=== PATIENT | female | born 1980 | race Caucasian/White ===

== ENCOUNTER 2019-11-03 10:33 | Emergency (ER) | payer OTHER ==
[2019-11-03 10:52] VITALS: BP 123/70; PULSE 80; RESP 18; TEMP 98.3
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
== END 2019-11-03 11:29 | disposition home or self-care (01) ==
LOC: EC 10:33
DX: L03.011 Cellulitis of right finger (principal); F17.200 Nicotine dependence, unspecified, uncomplicated; Z79.899 Other long term (current) drug therapy
CPT/HCPCS: 99283

== ENCOUNTER 2019-12-02 09:58 | Emergency (ER) | payer OTHER ==
[2019-12-02 10:17] VITALS: RESP 18
--- NOTE | 2019-12-02 11:13 | XR ---
EXAMINATION TYPE: XR ribs LT w pa chest xray DATE OF EXAM: 12/02/2019 CLINICAL HISTORY: Chest pain TECHNIQUE: Single frontal view of the chest is obtained. 2 views of the left ribs were obtained. COMPARISON: 10/02/2015 FINDINGS: There is no focal air space opacity, pleural effusion, or pneumothorax seen. The cardiac silhouette size is within normal limits. Minimally displaced left lateral rib 8 fracture is seen. Rem aining left ribs appear intact. No healed callused rib fracture deformity. IMPRESSION: Acute minimally displaced left lateral rib 8 fracture.
--- NOTE | 2019-12-02 11:22 | XR ---
EXAMINATION TYPE: XR nasal bone DATE OF EXAM: 12/02/2019 COMPARISON: NONE HISTORY: Nasal bone pain TECHNIQUE: 3 views of the nasal bones were obtained FINDINGS: No acute displaced nasal bone fracture is seen. Nasal septum is grossly midline. No radiogr aphic foreign body or focal soft tissue swelling. IMPRESSION: No acute displaced nasal bone fracture
[2019-12-02] MEDS ORDERED: ACET/COD 300 MG/30 MG STARTER PACK 6 TAB BTL PO STA (11:31)
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
[2019-12-02 11:41] VITALS: BP 114/62; PULSE 70; TEMP 98
== END 2019-12-02 11:47 | disposition home or self-care (01) ==
LOC: EC 09:58
DX: S22.32XA Fracture of one rib, left side, initial encounter for closed fracture (principal); S00.33XA Contusion of nose, initial encounter; L03.011 Cellulitis of right finger; F31.9 Bipolar disorder, unspecified; F11.10 Opioid abuse, uncomplicated; F17.200 Nicotine dependence, unspecified, uncomplicated; Z86.14 Personal history of Methicillin resistant Staphylococcus aureus infection; Y04.8XXA Assault by other bodily force, initial encounter
CPT/HCPCS: 70160; 99284

== ENCOUNTER 2021-02-14 09:44 | Emergency (ER) | payer OTHER ==
--- NOTE | 2021-02-14 10:16 | ED ---
General Adult HPI - General Chief complaint: Upper Respiratory Infection Stated complaint: Congestion Time Seen by Provider: 02/14/21 10:04 Source: patient, RN notes reviewed Mode of arrival: ambulatory Limitations: no limitations - History of Present Illness Initial comments: Patient is a 41-year-old female that presents to the emergency department with a 2 day history of cough congestion and body aches. She notes that she recently turned on her air conditioning unit and lots of water while she sleeping. She notes that she woke up feeling congested the first day turned it off in the day felt better. She notes that she tried again on the next night woke up feeling even worse. She notes that this similar thing happen last year when she turned her air conditioning on. She notes that it almost gives her a sinus infection and usually has take antibiotics. She denies recently being tested for Covid. She was in no apparent distress or pain while sitting up in bed during the exam interview. She denied any chest pain headache nausea vomiting diarrhea constipation fever fatigue chills. - Related Data Home Medications Medication Instructions Recorded Confirmed PARoxetine HCL [Paxil] 40 mg PO DAILY 07/27/16 07/27/16 QUEtiapine [SEROquel] 400 mg PO HS 07/27/16 07/27/16 atenoloL [Tenormin] 25 mg PO BID 07/27/16 07/27/16 buPROPion HCL [Wellbutrin SR] 150 mg PO BID 07/27/16 07/27/16 chlordiazePOXIDE HCl [Librium] 10 mg PO BID 07/27/16 07/27/16 traZODone HCL 150 mg PO HS 07/27/16 07/27/16 Previous Rx's Medication Instructions Recorded Cephalexin [Keflex] 500 mg PO Q6HR 7 Days #28 cap 11/03/19 Sulfamethox-Tmp 800-160Mg [Bactrim 1 each PO Q12HR 7 Days #14 tab 11/03/19 Ds] Clindamycin HCl 300 mg PO Q6HR #40 cap 12/02/19 Ibuprofen [Motrin] 600 mg PO Q8HR PRN #20 tab 12/02/19 Amoxicillin 500 mg PO Q8H #15 capsule 02/14/21 Allergies Allergy/AdvReac Type Severity Reaction Status Date / Time No Known Allergies Allergy Verified 02/14/21 10:02 Review of Systems ROS Statement: Those systems with pertinent positive or pertinent negative responses have been documented in the HPI. ROS Other: All systems not noted in ROS Statement are negative. Past Medical History Past Medical History: Asthma, GERD/Reflux, Pneumonia Additional Past Medical History / Comment(s): colitis, chrons,ibs. opiate abuse History of Any Multi-Drug Resistant Organisms: None Reported, MRSA Date of last positivie culture/infection: 09/25/17 MDRO Source:: back Past Surgical History: Appendectomy, Tubal Ligation Past Anesthesia/Blood Transfusion Reactions: No Reported Reaction Past Psychological History: Bipolar Smoking Status: Current every day smoker Past Alcohol Use History: None Reported Past Drug Use History: None Reported - Past Family History Father Family Medical History: Hyperlipidemia, Hypertension, Myocardial Infarction ([place]) Mother Family Medical History: Hyperlipidemia, Hypertension General Exam Limitations: no limitations General appearance: alert, in no apparent distress Head exam: Present: atraumatic, normocephalic, normal inspection Eye exam: Present: normal appearance, PERRL, EOMI. Absent: scleral icterus, conjunctival injection, periorbital swelling Neck exam: Present: normal inspection. Absent: tenderness, meningismus, lymphadenopathy Respiratory exam: Present: normal lung sounds bilaterally. Absent: respiratory distress, wheezes, rales, rhonchi, stridor Cardiovascular Exam: Present: regular rate, normal rhythm, normal heart sounds. Absent: systolic murmur, diastolic murmur, rubs, gallop, clicks GI/Abdominal exam: Present: soft, normal bowel sounds. Absent: distended, tenderness, guarding, rebound, rigid Extremities exam: Present: normal inspection, full ROM, normal capillary refill. Absent: tenderness, pedal edema, joint swelling, calf tenderness Neurological exam: Present: alert, oriented X3, CN II-XII intact Psychiatric exam: Present: normal affect, normal mood Skin exam: Present: warm, dry, intact, normal color. Absent: rash Course Vital Signs 02/14/21 10:00 Temperature 98.3 F Pulse Rate 100 Respiratory 19 Rate Blood Pressure 121/87 O2 Sat by Pulse 98 Oximetry Medical Decision Making - Medical Decision Making 41-year-old female complaining of cough congestion and body aches. Covid test, flu test, basic labs, chest x-ray ordered. Labs unremarkable. Covid and flu test negative. X-ray negative for any acute cardiopulmonary problems. Case discussed with Dr. Starks, patient can discharge home with follow-up to primary care. - Lab Data Result diagrams: 02/14/21 10:26 02/14/21 10:26 Lab Results 02/14/21 02/14/21 02/14/21 Range/Units 10:26 10:26 10:26 WBC 10.3 (3.8-10.6) k/uL RBC 4.89 (3.80-5.40) m/uL Hgb 15.1 (11.4-16.0) gm/dL Hct 44.4 (34.0-46.0) % MCV 90.8 (80.0-100.0) fL MCH 30.9 (25.0-35.0) pg MCHC 34.0 (31.0-37.0) g/dL RDW 12.9 (11.5-15.5) % Plt Count 232 (150-450) k/uL MPV 6.7 Neutrophils % 76 % Lymphocytes % 17 % Monocytes % 4 % Eosinophils % 2 % Basophils % 0 % Neutrophils # 7.9 H (1.3-7.7) k/uL Lymphocytes # 1.8 (1.0-4.8) k/uL Monocytes # 0.4 (0-1.0) k/uL Eosinophils # 0.2 (0-0.7) k/uL Basophils # 0.0 (0-0.2) k/uL Sodium 139 (137-145) mmol/L Potassium 4.3 (3.5-5.1) mmol/L Chloride 106 (98-107) mmol/L Carbon Dioxide 24 (22-30) mmol/L Anion Gap 9 mmol/L BUN 13 (7-17) mg/dL Creatinine 0.66 (0.52-1.04) mg/dL Est GFR (CKD-EPI)AfAm >90 (>60 ml/min/1.73 sqM) Est GFR (CKD-EPI)NonAf >90 (>60 ml/min/1.73 sqM) Glucose 110 H (74-99) mg/dL Calcium 9.4 (8.4-10.2) mg/dL Coronavirus (PCR) (Not Detectd) Influenza Type A RNA Not Detected (Not Detectd) Influenza Type B (PCR) Not Detected (Not Detectd) 02/14/21 Range/Units 10:26 WBC (3.8-10.6) k/uL RBC (3.80-5.40) m/uL Hgb (11.4-16.0) gm/dL Hct (34.0-46.0) % MCV (80.0-100.0) fL MCH (25.0-35.0) pg MCHC (31.0-37.0) g/dL RDW (11.5-15.5) % Plt Count (150-450) k/uL MPV Neutrophils % % Lymphocytes % % Monocytes % % Eosinophils % % Basophils % % Neutrophils # (1.3-7.7) k/uL Lymphocytes # (1.0-4.8) k/uL Monocytes # (0-1.0) k/uL Eosinophils # (0-0.7) k/uL Basophils # (0-0.2) k/uL Sodium (137-145) mmol/L Potassium (3.5-5.1) mmol/L Chloride (98-107) mmol/L Carbon Dioxide (22-30) mmol/L Anion Gap mmol/L BUN (7-17) mg/dL Creatinine (0.52-1.04) mg/dL Est GFR (CKD-EPI)AfAm (>60 ml/min/1.73 sqM) Est GFR (CKD-EPI)NonAf (>60 ml/min/1.73 sqM) Glucose (74-99) mg/dL Calcium (8.4-10.2) mg/dL Coronavirus (PCR) Not Detected (Not Detectd) Influenza Type A RNA (Not Detectd) Influenza Type B (PCR) (Not Detectd) - Radiology Data Radiology results: report reviewed, image reviewed Chest x-ray: No acute cardiopulmonary process. Disposition Clinical Impression: Sinusitis Disposition: HOME SELF-CARE Condition: Stable Instructions (If sedation given, give patient instructions): Upper Respiratory Infection (ED) Additional Instructions: Please return to the Emergency Department if symptoms worsen or any other concerns. Follow-up with primary care in 3-5 days. Take antibiotics as prescribed until complete. Avoid using air-conditioner at night with a directly blowing and face as it can cause sinus congestion irritation. Is patient prescribed a controlled substance at d/c from ED?: No Referrals: [facility] [Primary Care Provider] - 1-2 days Time of Disposition: 12:11
--- NOTE | 2021-02-14 10:24 | XR ---
EXAMINATION TYPE: XR chest 2V DATE OF EXAM: 02/14/2021 COMPARISON: Chest x-ray December 02, 2019 HISTORY: Cough and shortness of breath. TECHNIQUE: Frontal and lateral views of the chest are obtained. FINDINGS: There is no new suspicious focal air space opacity, pleural effusion, or pneumothorax seen . The cardiac silhouette size is stable and within normal limits. The osseous structures are intac t. IMPRESSION: No acute cardiopulmonary process.
[2021-02-14 10:40] LABS: Basophils % (A) 0 %; Eosinophils # (A) 0.2 k/uL (0-0.7); Eosinophils % (A) 2 %; HCT 44.4 % (34.0-46.0); HGB 15.1 gm/dL (11.4-16.0); Lymphocytes # (A) 1.8 k/uL (1.0-4.8); Lymphocytes % (A) 17 %; MCH 30.9 pg (25.0-35.0); MCV 90.8 fL (80.0-100.0); Mean Platelet Volume 6.7; Monocytes # (A) 0.4 k/uL (0-1.0); Monocytes % (A) 4 %; Neutrophils # (A) 7.9 k/uL (1.3-7.7); Neutrophils % (A) 76 %; Platelet Count 232 k/uL (150-450); RBC 4.89 m/uL (3.80-5.40); RDW 12.9 % (11.5-15.5); WBC 10.3 k/uL (3.8-10.6)
[2021-02-14 10:52] LABS: African American GFR (CKD) >90 (>60 ml/min/1.73 sqM); Anion Gap 9 mmol/L; Blood Urea Nitrogen 13 mg/dL (7-17); Calcium 9.4 mg/dL (8.4-10.2); Carbon Dioxide 24 mmol/L (22-30); Chloride 106 mmol/L (98-107); Glucose 110 mg/dL (74-99); Non-African American GFR(CKD) >90 (>60 ml/min/1.73 sqM); Potassium 4.3 mmol/L (3.5-5.1); Sodium 139 mmol/L (137-145)
[2021-02-14 12:28] VITALS: BP 124/74; PULSE 78; RESP 16; TEMP 98.5
== END 2021-02-14 12:27 | disposition home or self-care (01) ==
LOC: EC 09:44
DX: J32.9 Chronic sinusitis, unspecified (principal); J45.909 Unspecified asthma, uncomplicated; F17.200 Nicotine dependence, unspecified, uncomplicated; Z20.822 Contact with and (suspected) exposure to COVID-19
CPT/HCPCS: 36415; 71046; 80048; 85025; 87502; 87635; 99283

== ENCOUNTER → 2021-07-19 | Outpatient (CLI) | payer OTHER | END | disposition home or self-care (01) | LOC: LABWHC1 10:40 | PROVIDERS: ATTEND Internal Medicine | DX: Z20.822 Contact with and (suspected) exposure to COVID-19 (principal) | CPT/HCPCS: U0003; C9803; U0005 ==

== ENCOUNTER 2021-10-05 23:10 | Emergency (ER) | payer OTHER ==
[2021-10-05 23:17] VITALS: RESP 16; TEMP 97.7
[2021-10-06 01:45] VITALS: BP 133/89; PULSE 65
--- NOTE | 2021-10-06 01:46 | ED ---
Recheck HPI - General Chief Complaint: Shortness of Breath Stated Complaint: SOB Time Seen by Provider: 10/06/21 01:25 Source: patient, RN notes reviewed, old records reviewed Mode of arrival: ambulatory - History of Present Illness Initial Comments: This is a 41-year-old female DF for evaluation, patient complains of headache history of asthma cough and congestion also complains of bodyaches and pains for 2 days. No real known significant sick contacts. No fevers MD Complaint: other (patient is concern for coronavirus) -: days(s) Returns Today for: request for prescription (Patient wants to be tested for coronavirus) Symptoms Since Prior Visit: no new symptoms Associated Symptoms: none Treatments Prior to Arrival: other (none) - Related Data Home Medications Medication Instructions Recorded Confirmed PARoxetine HCL [Paxil] 40 mg PO DAILY 07/27/16 07/27/16 QUEtiapine [SEROquel] 400 mg PO HS 07/27/16 07/27/16 atenoloL [Tenormin] 25 mg PO BID 07/27/16 07/27/16 buPROPion HCL [Wellbutrin SR] 150 mg PO BID 07/27/16 07/27/16 chlordiazePOXIDE HCl [Librium] 10 mg PO BID 07/27/16 07/27/16 traZODone HCL 150 mg PO HS 07/27/16 07/27/16 Previous Rx's Medication Instructions Recorded Cephalexin [Keflex] 500 mg PO Q6HR 7 Days #28 cap 11/03/19 Sulfamethox-Tmp 800-160Mg [Bactrim 1 each PO Q12HR 7 Days #14 tab 11/03/19 Ds] Clindamycin HCl 300 mg PO Q6HR #40 cap 12/02/19 Ibuprofen [Motrin] 600 mg PO Q8HR PRN #20 tab 12/02/19 Amoxicillin 500 mg PO Q8H #15 capsule 02/14/21 Allergies Allergy/AdvReac Type Severity Reaction Status Date / Time No Known Allergies Allergy Verified 02/14/21 10:02 Review of Systems ROS Statement: Those systems with pertinent positive or pertinent negative responses have been documented in the HPI. ROS Other: All systems not noted in ROS Statement are negative. Past Medical History Past Medical History: Asthma Additional Past Medical History / Comment(s): colitis, chrons,ibs. opiate abuse History of Any Multi-Drug Resistant Organisms: None Reported, MRSA Date of last positivie culture/infection: 09/25/17 MDRO Source:: back Past Surgical History: Appendectomy, Tubal Ligation Past Anesthesia/Blood Transfusion Reactions: No Reported Reaction Past Psychological History: Bipolar Smoking Status: Current every day smoker Past Alcohol Use History: None Reported Past Drug Use History: None Reported - Past Family History Father Family Medical History: Hyperlipidemia, Hypertension, Myocardial Infarction ([place]) Mother Family Medical History: Hyperlipidemia, Hypertension General Exam Limitations: no limitations General appearance: alert, in no apparent distress Head exam: Present: atraumatic, normocephalic, normal inspection Eye exam: Present: normal appearance ENT exam: Present: normal exam Neck exam: Present: normal inspection Cardiovascular Exam: Present: regular rate Neurological exam: Present: alert, oriented X3 Psychiatric exam: Present: normal affect, normal mood Course Vital Signs 10/05/21 23:13 Temperature 97.7 F Pulse Rate 103 H Respiratory 16 Rate Blood Pressure 129/92 O2 Sat by Pulse 100 Oximetry - Reevaluation(s) Reevaluation #1: 10/06/21 01:45 Medical record is reviewed Reevaluation #2: 10/06/21 01:45 Patient informed results Reevaluation #3: 10/06/21 01:45 Patient left ER immediately upon finding results from coronavirus testing Medical Decision Making - Medical Decision Making 41 female who presented for coronavirus test, patient was negative for coronavirus and left without discharge instructions - Lab Data Lab Results 10/05/21 Range/Units 23:20 Coronavirus (PCR) Not Detected (Not Detectd) Disposition Clinical Impression: Normal exam Disposition: HOME SELF-CARE Condition: Fair Instructions (If sedation given, give patient instructions): Coronavirus Disease 2019 (COVID-19), Normal Exam (ED) Is patient prescribed a controlled substance at d/c from ED?: No Referrals: None,Stated [Primary Care Provider] - 1-2 days
== END 2021-10-06 01:46 | disposition home or self-care (01) ==
LOC: EC 23:10
DX: R06.02 Shortness of breath (principal); R51.9 Headache, unspecified; R05.9 Cough, unspecified; R09.81 Nasal congestion; J45.909 Unspecified asthma, uncomplicated; Z20.822 Contact with and (suspected) exposure to COVID-19
CPT/HCPCS: 87635; 99284

== ENCOUNTER 2024-02-25 18:13 | Emergency (ER) | payer OTHER ==
[2024-02-25 18:38] VITALS: BP 108/62; PULSE 71; RESP 16; TEMP 98.2
--- NOTE | 2024-02-25 18:52 | XR ---
EXAMINATION TYPE: XR forearm LT DATE OF EXAM: 02/25/2024 COMPARISON: None HISTORY: Pain TECHNIQUE: 2 view left forearm FINDINGS: No acute fracture or dislocation is evident. Soft tissues are unremarkable. Joint spaces ap pear preserved. Follow up exams can be performed 7-10 days from acute trauma for continued pain. IMPRESSION: 1. No acute osseous abnormality left hand
--- NOTE | 2024-02-25 18:52 | XR ---
EXAMINATION TYPE: XR hand complete LT DATE OF EXAM: 02/25/2024 COMPARISON: None HISTORY: Pain TECHNIQUE: 3 view left hand FINDINGS: No acute fracture or dislocation is evident. Joint spaces are preserved. Some mild soft tis lidia swelling may be present. Follow up exams can be performed 7-10 days from acute trauma for continu ed pain. IMPRESSION: 1. No acute osseous abnormalities left hand.
--- NOTE | 2024-02-25 19:22 | ED ---
General Adult HPI - General Chief complaint: Extremity Injury, Upper Stated complaint: Left hand pain Time Seen by Provider: 02/25/24 18:39 Source: patient, RN notes reviewed Mode of arrival: ambulatory Limitations: no limitations - History of Present Illness Initial comments: Patient is a 44-year-old female present to the emergency department with conc erns with left wrist injury. Patient was resting with her son earlier. Patient had her left wrist bent backwards. Patient is having discomfort left wrist and somewhat of the hand and somewhat of the forearm. No other area of injury or concern. No history of previous injury to this area. - Related Data Home Medications Medication Instructions Recorded Confirmed PARoxetine HCL [Paxil] 40 mg PO DAILY 07/27/16 07/27/16 QUEtiapine [SEROquel] 400 mg PO HS 07/27/16 07/27/16 atenoloL [Tenormin] 25 mg PO BID 07/27/16 07/27/16 buPROPion HCL [Wellbutrin SR] 150 mg PO BID 07/27/16 07/27/16 chlordiazePOXIDE HCl [Librium] 10 mg PO BID 07/27/16 07/27/16 traZODone HCL 150 mg PO HS 07/27/16 07/27/16 Previous Rx's Medication Instructions Recorded Cephalexin [Keflex] 500 mg PO Q6HR 7 Days #28 cap 11/03/19 Sulfamethox-Tmp 800-160Mg [Bactrim 1 each PO Q12HR 7 Days #14 tab 11/03/19 Ds] Ibuprofen [Motrin] 600 mg PO Q8HR PRN #20 tab 12/02/19 clindamycin HCL [Clindamycin HCl] 300 mg PO Q6HR #40 cap 12/02/19 Amoxicillin 500 mg PO Q8H #15 capsule 02/14/21 Allergies Allergy/AdvReac Type Severity Reaction Status Date / Time No Known Allergies Allergy Verified 02/25/24 18:30 Review of Systems ROS Statement: Those systems with pertinent positive or pertinent negative responses have been documented in the HPI. ROS Other: All systems not noted in ROS Statement are negative. Constitutional: Denies: fever Eyes: Denies: eye pain ENT: Denies: ear pain Respiratory: Denies: cough Cardiovascular: Denies: chest pain Endocrine: Denies: fatigue Gastrointestinal: Denies: abdominal pain Musculoskeletal: Reports: as per HPI Past Medical History Past Medical History: Asthma Additional Past Medical History / Comment(s): colitis, chrons,ibs. opiate abuse History of Any Multi-Drug Resistant Organisms: None Reported, MRSA Date of last positivie culture/infection: 09/25/17 MDRO Source:: back Past Surgical History: Appendectomy, Tubal Ligation Past Anesthesia/Blood Transfusion Reactions: No Reported Reaction Past Psychological History: Bipolar Smoking Status: Current every day smoker Past Alcohol Use History: None Reported Past Drug Use History: None Reported - Past Family History Father Family Medical History: Hyperlipidemia, Hypertension, Myocardial Infarction ([place]) Mother Family Medical History: Hyperlipidemia, Hypertension General Exam Limitations: no limitations General appearance: alert, in no apparent distress Head exam: Present: normocephalic Eye exam: Present: normal appearance Neck exam: Present: normal inspection. Absent: tenderness Respiratory exam: Present: normal lung sounds bilaterally Cardiovascular Exam: Present: regular rate, normal rhythm Expanded Peripheral pulses: 2+: Radial (L) Extremities exam: Present: tenderness (Patient does have some mild tenderness le ft snuffbox region. Distally the extremity is neuro vastly intact) Neurological exam: Present: alert. Absent: motor sensory deficit Psychiatric exam: Present: normal affect, normal mood Skin exam: Present: normal color Course Vital Signs 02/25/24 18:27 Temperature 98.2 F Pulse Rate 71 Respiratory 16 Rate Blood Pressure 108/62 O2 Sat by Pulse 99 Oximetry Procedures - Orthopedic Splinting/Casting Injury #1 Side: left Upper Extremity Injury Location: short arm Upper Extremity Immobilizer: thumb spica Medical Decision Making - Medical Decision Making Was pt. sent in by a medical professional or institution (, PA, SURFACE LAY OUT TECHNICIAN, urgent care, hospital, or long term...) When possible be specific @ -No Did you speak to anyone other than the patient for history (EMS, parent, family, police, friend...)? What history was obtained from this source @ -No Did you review nursing and triage notes (agree or disagree)? Why? @ -I reviewed and agree with nursing and triage notes Were old charts reviewed (outside hosp., previous admission, EMS record, old EKG, old radiological studies, urgent care reports/EKG's, long term records)? Report findings @ -No old charts were reviewed Differential Diagnosis (chest pain, altered mental status, abdominal pain women, abdominal pain men, vaginal bleeding, weakness, fever, dyspnea, syncope, headache, dizziness, GI bleed, back pain, seizure, CVA, palpatations, mental health, musculoskeletal)? @ -Differential Musculoskeletal differential Musculoskeletal Muscular strain, contusion, ligament sprain, fracture, arthritis, septic arthritis, bursitis, cellulitis, muscle spasm, nerve compression, DVT, arterial occlusion, herpes zoster, electrolyte abnormality, tumor.... This is not meant to be in all inclusive list Muscular strain, contusion, ligament sprain, fracture, arthritis, septic arthritis, bursitis, cellulitis, muscle spasm, nerve compression, DVT, arterial occlusion, herpes zoster, electrolyte abnormality, tumor.... This is not meant to be in all inclusive list EKG interpreted by me (3pts min.). @ -As above X-rays interpreted by me (1pt min.). @ -X-ray left wrist does not reveal acute fracture CT interpreted by me (1pt min.). @ -None done U/S interpreted by me (1pt. min.). @ -None done What testing was considered but not performed or refused? (CT, X-rays, U/S, labs)? Why? @ -None What meds were considered but not given or refused? Why? @ -None Did you discuss the management of the patient with other professionals (professionals i.e. , PA, SURFACE LAY OUT TECHNICIAN, lab, RT, psych nurse, child welfare social worker, fabrication engineer, teacher, identification officer, disease case manager rn)? Give summary @ -No Was smoking cessation discussed for >3mins.? @ -No Was critical care preformed (if so, how long)? @ -No Were there social determinants of health that impacted care today? How? (Homelessness, low income, unemployed, alcoholism, drug addiction, transportation, low edu. Level, literacy, decrease access to med. care, group home, rehab)? @ -No Was there de-escalation of care discussed even if they declined (Discuss DNR or withdrawal of care, Hospice)? DNR status @ -No What co-morbidities impacted this encounter? (DM, HTN, Smoking, COPD, CAD, Cancer, CVA, ARF, Chemo, Hep., AIDS, mental health diagnosis, sleep apnea, morbid obesity)? @ -None Was patient admitted / discharged? Hospital course, mention meds given and route, prescriptions, significant lab abnormalities, going to OR and other pertinent info. @ -Patient updated. Splint placed. Patient will be discharged and understands she will need repeat after x-ray if discomfort continues at 1 week. Undiagnosed new problem with uncertain prognosis? @ -No Drug Therapy requiring intensive monitoring for toxicity (Heparin, Nitro, Insulin, Cardizem)? @ -No Were any procedures done? @ -Wrist splint Diagnosis/symptom? @ -Sprain of wrist Acute, or Chronic, or Acute on Chronic? @ -Acute Uncomplicated (without systemic symptoms) or Complicated (systemic symptoms)? @ -Default Side effects of treatment? @ -No Exacerbation, Progression, or Severe Exacerbation? @ -No Poses a threat to life or bodily function? How? (Chest pain, [place], [place], pneumonia, PE, COPD, DKA, ARF, appy, cholecystitis, CVA, Diverticulitis, Homicidal, Suicidal, threat to staff... and all critical care pts) @ -No Disposition Clinical Impression: Wrist sprain Disposition: HOME SELF-CARE Condition: Stable Instructions (If sedation given, give patient instructions): Wrist Injury (ED) Additional Instructions: Please follow-up with primary care physician and orthopedics this week. If symptoms continue at 1 week you will need repeat x-rays. Return for increased pain, swelling, hand problems, worsening or changing symptoms or other concerns. Ice to affected area. [id number] Motrin as needed. Is patient prescribed a controlled substance at d/c from ED?: No Referrals: Elmer Kent MD [STAFF PHYSICIAN] - 1-2 days Orion Larose MD [STAFF PHYSICIAN] - 1-2 days Time of Disposition: 19:21
== END 2024-02-25 19:44 | disposition home or self-care (01) ==
LOC: EC 18:13
DX: S63.502A Unspecified sprain of left wrist, initial encounter (principal); F17.200 Nicotine dependence, unspecified, uncomplicated; X50.9XXA Other and unspecified overexertion or strenuous movements or postures, initial encounter
CPT/HCPCS: 29125; 99283

== ENCOUNTER → 2025-01-14 | Outpatient (CLI) | payer BC, OTHER ==
--- NOTE | 2025-01-14 11:20 | XR ---
EXAMINATION TYPE: XR knee 4V RT DATE OF EXAM: 01/14/2025 10:50 AM COMPARISON: 04/19/2013 CLINICAL INDICATION: Female, 44 years old with history of [id number] RIGHT KNEE PAIN; PHH, pain TECHNIQUE: XR knee 4V RT 4 views submitted. FINDINGS: No evidence of any acute osseous pathology, soft tissue swelling, or joint effusion is no hema. Tricompartmental osteophyte formation involving the femoral condyles, tibial plateau and patella . Mild joint space narrowing. IMPRESSION: 1. No acute osseous pathology. 2. Mild degeneration changes of the knee. [facility], , 01/14/2025 11:17 AM
[2025-01-14 14:49] LABS: Basophils # (A) 0.02 X 10*3/uL (0.00-0.10); Basophils % (A) 0.4 %; Eosinophils # (A) 0 X 10*3/uL (0.04-0.35); Eosinophils % (A) 0 %; HCT 41.6 % (37.2-46.3); HGB 13.8 g/dL (12.0-15.0); Lymphocytes # (A) 2.26 X 10*3/uL (0.90-5.00); Lymphocytes % (A) 40.6 %; MCH 30.3 pg (27.0-32.0); MCHC 33.2 g/dL (32.0-37.0); MCV 91.4 FL (80.0-97.0); Mean Platelet Volume 10.1 FL (9.5-12.2); Monocytes # (A) 0.35 X 10*3/uL (0.20-1.00); Monocytes % (A) 6.3 %; NRBC Per 100 WBC 0 X 10*3/uL (0.00-0.01); Neutrophils # (A) 2.92 X 10*3/uL (1.80-7.70); Neutrophils % (A) 52.5 %; Platelet Count 230 X 10*3/uL (140-440); RBC 4.55 X 10*6/uL (4.10-5.20); RDW 12.3 % (11.5-14.5); WBC 5.56 X 10*3/uL (4.50-10.00)
[2025-01-14 15:14] LABS: % Iron Saturation 23.24 (12.00-45.00); ALT 19 U/L (8-44); AST 24 U/L (13-35); Albumin 4.3 g/dL (3.8-4.9); Albumin/Globulin Ratio 1.79 Ratio (1.60-3.17); Alkaline Phosphatase 54 U/L (41-126); Blood Urea Nitrogen 15.2 mg/dL (9.0-27.0); Calcium 9.2 mg/dL (8.7-10.3); Carbon Dioxide 21.1 mmol/L (21.6-31.8); Chloride 105 mmol/L (96-109); Chol/HDL Ratio 5.19 Ratio; Globulin 2.4 g/dL (1.6-3.3); Glucose 96 mg/dL (70-110); Iron 96 UG/DL (50-170); LDL Cholesterol,Calculated 168.5 mg/dL (0.0-131.0); Magnesium 1.9 mg/dL (1.5-2.4); Potassium 3.9 mmol/L (3.5-5.5); Sodium 137 mmol/L (135-145); Total Bilirubin <0.2 mg/dL (0.3-1.2); Total Iron Binding Capacity 413 UG/DL (228-460); Total Protein 6.7 g/dL (6.2-8.2); Uric Acid 4.3 mg/dL (2.9-7.7)
== END | disposition home or self-care (01) ==
LOC: LABWHC1 10:09
PROVIDERS: ATTEND Internal Medicine
DX: Z00.00 Encounter for general adult medical examination without abnormal findings (principal); Z11.59 Encounter for screening for other viral diseases; L60.3 Nail dystrophy; M25.561 Pain in right knee; M17.11 Unilateral primary osteoarthritis, right knee; K50.90 Crohn's disease, unspecified, without complications
CPT/HCPCS: 36415; 80053; 80061; 82306; 82607; 82728; 82746; 83540; 83550; 83735; 84443; 84550; 85025; 86803